=== PATIENT | male | born 1960 | race Caucasian/White ===

== ENCOUNTER 2016-08-20 09:42 | Observation (INO) | payer BC ==
[2016-08-13 18:40] LABS: HEMATOCRIT 48.8 % (40.0-51.0); HEMOGLOBIN 16.8 g/dL (13.6-17.8)
--- NOTE | ~2016-08-20 | OP ---
Record Of Operation [facility] [address] [place]. [address] NAME: SYDNI BAUTISTA : 58 STATUS : [facility] PAT#: [id number] AGE: 56 ADM/REG DATE : 08/20/16 MR#: [id number] REPORT SERV DATE: 08/20/16 DICTATED BY: FUENTES IVORY DATE: 08/20/16 REPORT STATUS : Draft TRANSCRIBED BY: MODL DATE: 08/20/16 DATE OF PROCEDURE: PREOPERATIVE DIAGNOSIS: Herniated nucleus polyposis, right C6-7 with intractable radiculopathy. POSTOPERATIVE DIAGNOSIS: Herniated nucleus polyposis, right C6-7 with intractable radiculopathy. PROCEDURES: 1. Microscopic and navigation-assisted surgery. 2. Anterior cervical diskectomy, foraminotomy, C6-7. 3. Prestige LP disk arthroplasty, C6-7. SURGEON: Fuentes Ivory D.O. AUDIT ASSOCIATE: Prem Echevarria. ANESTHESIA: General. BLOOD LOSS: 40 mL. INDICATIONS FOR SURGERY: A 56-year-old male with severe neck pain, right shoulder and arm pain. It has been totally intractable and unresponsive to any conservative care. Plain x- rays reveal quite normal findings, actually minimal degrees of disk degeneration and no significant collapse of disk spaces. There is very minimal amount of anterior spur formation at C6 and C7, but the facet joints on MRI were quite good. The patient has a very large extruded disk herniation on the right at C6-7 with severe impingement on the nerve. The patient was brought to surgery for above procedure having failed conservative care. Prior to surgery, risks, benefits, alternatives, and expectations explained. Consent form is signed. DESCRIPTION OF PROCEDURE: Antibiotic prophylaxis given. Neurophysiology monitoring leads inserted. The patient brought to the operative suite. General anesthetic including endotracheal intubation administered. He was in a supine position on fluoroscopic Rajendra spine frame. Bony prominences were carefully padded. A small bolster was placed behind his shoulders. The scalp was painted with Betadine solution. Norman three-point fixation attached to the skull using 60 pounds of torque in standard position. Norman was attached to the Rajendra bed. [employer] navigational registration frame was attached to the [place]. Because of the complexity of surgery and the need to identify correct level of surgery intraoperatively as well as desire to carry out the safest and most precise dissection, I felt the intraoperative navigation was mandatory. Intraoperative CT scan with O-arm obtained, CT information used to register the navigational system. Record Of Operation [facility] [address] [place]. [address] NAME: SYDNI BAUTISTA : 58 STATUS : [facility] PAT#: [id number] AGE: 56 ADM/REG DATE : 08/20/16 MR#: [id number] REPORT SERV DATE: 08/20/16 DICTATED BY: FUENTES IVORY DATE: 08/20/16 REPORT STATUS : Draft TRANSCRIBED BY: ARELIS DATE: 08/20/16 With navigational assistance, I identified the C6-7 level. On the left side, a transverse 2.5 cm [place] skin incision was carried out just at the level of C6-7 paralleled with the disk space. The platysma was incised in line with the skin incision. Superficial layer of the deep cervical fascia was released along the anterior border of the sternocleidomastoid. Blunt dissection was carried out to the retropharyngeal space where the longus colli muscle were subperiosteally elevated. Retractors were placed. The intraoperative navigation was used to re-identify the correct level of surgery. It should be noted that this patient has a very large, thick neck. Because of his body habitus, it is literally impossible to see across his shoulders and identify the correct level of surgery with just plain C-arm and thus navigation method chosen to allow correct identification of level. [place] distractor pins placed in the midbody of C6 and 7. The microscope was sterilely draped and used throughout the remainder of the procedure. With navigational assistance, we then identified the right and left boundaries of the uncinate processes. A diskectomy was carried out with curettes and rongeurs and as we moved from anterior to posterior, the disk space was widened with the distractor. Posteriorly, the uncinate processes were debrided generously with a 3 mm and 2 mm froylan bur. On the right side, the posterior longitudinal ligament was taken down and a very large extruded disk herniation removed from the epidural space. We then also removed the posterior longitudinal ligament on the left side and a wide foraminotomy completed on the left side as well as the right. The posterior inferior lip of the body of C6 was removed to ensure that we had posterior placement of the implant in the correct location. The wounds were irrigated. The width, depth, and height of the disk space was measured. We also used navigational assistance and measured the depth of the C7 endplate from anterior to posterior, and this measured 28 mm. We did a trial with a 6 x 18 trial. This felt very loose. We then trialed with a 7 x 18 trial and this was the appropriate size. We placed the drill guide and correctly aligned the rotation with navigational assistance. We drilled the four holes. The rail cutting guide was then placed and the rails were cut. Finally, after wound irrigation, the implant was impacted into its final resting position and intraoperative C-arm was obtained with the O-arm. This showed excellent position of the implant. There was excellent coverage of the endplate. There was good position posteriorly all the way to the edge of the posterior endplate. After completing the irrigation, we carefully inspected the wound. No bleeding was noted. The retractors were removed. Again, we carefully watched the wound and there was no bleeding. The platysma was closed with a 3- 0 Vicryl suture. Subcutaneous tissue closed with 3-0 Vicryl suture and subcuticular 4-0 PDS used for skin closure. Sterile dressings applied. The patient awakened, extubated, taken to recovery room in satisfactory condition having tolerated the procedure well. Sponge, needle, and instrument counts were correct. No intraoperative complications noted. NATE/ARELIS Fuentes Ivory D.O. Record Of Operation [address] [address] NAME: SYDNI BAUTISTA : 58 STATUS : [facility] PAT#: [id number] AGE: 56 ADM/REG DATE : 08/20/16 MR#: [id number] REPORT SERV DATE: 08/20/16 DICTATED BY: FUENTES IVORY DATE: 08/20/16 REPORT STATUS : Draft TRANSCRIBED BY: MODL DATE: 08/20/16 / [id number] CC: Ninfa Delgado Paul Daniel
[~2016-08-20 09:42] MED LIST: HYDROCHLOROT25 MG PO; LEXAPRO10 PO; PRILOSEC40 MG PO
[2016-08-20 10:40] LABS: BUN (BLOOD UREA NITROGEN) 19 MG/DL (6-23); CALCIUM, SERUM 9.2 MG/DL (8.5-10.4); CHLORIDE, SERUM 109 MMOL/L (96-112); CO2 (CARBON DIOXIDE) 26 MMOL/L (24-34); CREATININE 1.21 MG/DL (0.70-1.30); GFR AFRICAN AMERICAN 77 ML/MIN (>=60); GFR NON AFRICAN AMERICAN 66 ML/MIN (>=60); GLUCOSE, SERUM 98 MG/DL (60-99); POTASSIUM, SERUM 3.9 MMOL/L (3.5-5.3); SODIUM, SERUM 143 MMOL/L (135-148)
[2016-08-21] MEDS ORDERED: METHOC750B PO (09:33)
[2016-08-21] MEDS ORDERED: OXYCOD PO (09:34)
[2016-08-21] MEDS ORDERED: ANADS PO (09:39)
== END 2016-08-21 10:50 | disposition home or self-care (01) ==
LOC: SDC 09:42 → 3SO 19:46
PROVIDERS: Orthopaedic Surgery Orthopaedic Surgery of the Spine
PROC: 0RB30ZZ Excision of Cervical Vertebral Disc, Open Approach (ICD-10-PCS; principal; 2016-08-20 11:45)
PROC: 01N10ZZ Release Cervical Nerve, Open Approach (ICD-10-PCS; 2016-08-20 11:45)
DX: J40 Bronchitis, not specified as acute or chronic (principal); J32.9 Chronic sinusitis, unspecified; H10.9 Unspecified conjunctivitis; E11.9 Type 2 diabetes mellitus without complications; F03.90 Unspecified dementia, unspecified severity, without behavioral disturbance, psychotic disturbance, mood disturbance, and anxiety; J44.9 Chronic obstructive pulmonary disease, unspecified; E03.9 Hypothyroidism, unspecified; N39.0 Urinary tract infection, site not specified; Z85.038 Personal history of other malignant neoplasm of large intestine; Z95.0 Presence of cardiac pacemaker; Z90.49 Acquired absence of other specified parts of digestive tract; Z90.89 Acquired absence of other organs
CPT/HCPCS: 36415; 76000; 80048; 82962; 85014; 85018; 87641; 88304; 93005; 96374; 96375; 96376; A9270-GY; G0378; J0690; J1030; J2250; J2405; J2710; J3010